=== PATIENT | male | born 1995 | race Two or more races ===

== ENCOUNTER 2017-01-11 22:13 | Emergency (ER) | payer OTHER ==
[~2017-01-11] VITALS: Ht 175.3 cm; Wt 72.6 kg
[2017-01-11 22:33] VITALS: BP 122/43
--- NOTE | 2017-01-11 23:17 | NUR ---
Ajay walker in [facility] - 01/11/17 at 2317 by RINA back from ct
== END 2017-01-12 01:21 | disposition home or self-care (01) ==
LOC: ER 22:22
DX: S93.401A Sprain of unspecified ligament of right ankle, initial encounter (principal); X58.XXXA Exposure to other specified factors, initial encounter; Y93.02 Activity, running; Y92.89 Other specified places as the place of occurrence of the external cause; Y99.8 Other external cause status
CPT/HCPCS: 73610; 99284; A4606; Z7610

== ENCOUNTER 2017-03-15 20:19 | Emergency (ER) | payer SELFPAY ==
[~2017-03-15] VITALS: Ht 175.3 cm; Wt 72.6 kg
--- NOTE | 2017-03-15 20:30 | NUR ---
PT A/OX4 BREATHING EFFORTLESSLY ON ROOM AIR, PT STATES HE HAS BEEN FEELING WEAK AND HAVING BLURRY VIOSION X 2 WEEKS, PT DENIES ANY INJURY OR TRAUAM AND I WALKING WITH A STEADY GAIT, PT ON MONITOR, VSS, IV PLACED, LABS DRAWN, MD MADE AWARE WILL CONTINUE TO MONITOR.
[2017-03-15] MEDS ORDERED: IV NS 0.9% 1,000 ML BAG IV ONE (21:00)
[2017-03-15 21:16] LABS: BASOPHILS # (AUTO) 0.1 /CMM (0.0-0.2); EOSINOPHILS # (AUTO) 0.1 /CMM (0.0-0.7); EOSINOPHILS % (AUTO) 1.4 % (0.0-6.0); HEMATOCRIT 47 % (39-51); HEMOGLOBIN 15.5 g/dL (13.5-17.5); LYMPHOCYTES # (AUTO) 2.5 /CMM (0.8-4.8); LYMPHOCYTES % (AUTO) 30.5 % (20.0-44.0); MEAN CORPUSCULAR HEMOGLOBIN 29 PG (26.0-33.0); MEAN CORPUSCULAR HGB CONC 33 g/dl (31.0-36.0); MEAN CORPUSCULAR VOLUME 89 fL (80-96); MONOCYTES # (AUTO) 0.7 /CMM (0.1-1.30); MONOCYTES % (AUTO) 8.7 % (2.0-12.0); NEUTROPHILS # (AUTO) 4.6 /CMM (1.8-8.9); NEUTROPHILS % (AUTO) 58.4 % (43.0-81.0); PLATELET COUNT (AUTO) 199 /CMM (150-450); RDW COEFFICIENT OF VARIATION 11.1 (11.5-15.0); RED BLOOD CELL COUNT(AUTO) 5.29 MIL/uL (4.5-6.0)
[2017-03-15 21:26] LABS: CALCIUM, SERUM 8.7 mg/dL (8.5-10.1); CREATININE 1.1 mg/dL (0.6-1.3); POTASSIUM 4.1 mmol/L (3.5-5.1)
[2017-03-15 21:30] LABS: INR 1.07 (0.87-1.13); PROTHROMBIN TIME 11.1 SECS (9.5-12.7)
--- NOTE | 2017-03-15 23:06 | NUR ---
IV removed. Catheter intact and site benign. Pressure and 4x4 applied to site. No bleeding noted.Patient discharged to home in stable condition. Written and verbal after care instructions given. Patient verbalizes understanding of instruction.
[2017-03-15 23:07] VITALS: BP 136/88
== END 2017-03-15 23:08 | disposition home or self-care (01) ==
LOC: ER 20:19
DX: R53.1 Weakness (principal); R79.1 Abnormal coagulation profile; Z88.8 Allergy status to other drugs, medicaments and biological substances
CPT/HCPCS: 36415; 80048; 84443; 85025; 85730; 93005; 96360; 99285; A4606; J7030; Z7610